=== PATIENT | female | born 2000 | race Caucasian/White ===

== ENCOUNTER 2018-02-09 15:35 | Emergency (ER) | payer OTHER ==
[~2018-02-09] VITALS: Ht 162.6 cm; Wt 54.4 kg
[2018-02-09 16:03] LABS: ABSOLUTE NEUTROPHILS 6.9 thou/uL (1.4-8.2); BASOPHILS 0.5 % (0.0-2.0); EOSINOPHILS 0.9 % (0.0-3.0); HEMATOCRIT 35.8 % (37.0-47.0); HEMOGLOBIN 12.5 gm/dL (12.0-15.0); LYMPHOCYTES 21.4 % (24.0-44.0); MCH 31.5 pg (26.0-34.0); MONOCYTES 4.9 % (1.0-8.0); PLATELET COUNT 170 thou/uL (150-400); POLYS 72.3 % (36.0-66.0); RBC 3.98 mil/uL (4.20-5.00); RDW 12.4 % (10.5-14.5); WBC 9.5 thou/uL (4.0-11.0)
[2018-02-09 16:11] LABS: CALCIUM 9.5 mg/dL (8.5-10.1); CREATININE 0.7 mg/dL (0.6-1.0); POTASSIUM 3.6 mmol/L (3.5-5.1)
[2018-02-09 16:16] LABS: ALBUMIN 3.9 g/dL (3.4-5.0); TOTAL BILIRUBIN 0.2 mg/dL (<0.1-1.0); TOTAL PROTEIN 7.9 g/dL (6.4-8.2)
[2018-02-09 18:10] LABS: URINE BILIRUBIN NEGATIVE (Negative); URINE BLOOD NEGATIVE (Negative); URINE CLARITY CLEAR; URINE COLOR YELLOW; URINE GLUCOSE-RANDOM* NEGATIVE (Negative); URINE KETONES NEGATIVE (Negative); URINE LEUKOCYTES-REFLEX NEGATIVE (Negative); URINE NITRITE-REFLEX NEGATIVE (Negative); URINE PROTEIN (DIPSTICK) NEGATIVE (Negative); URINE SPECIFIC GRAVITY 1.015 (1.005-1.035); URINE UROBILINOGEN 0.2 E.U./dl (0.2-1.0)
[2018-02-09] MEDS ORDERED: FLAGYL500 MG PO (18:19)
[2018-02-09 18:21] VITALS: BP 101/74
[2018-02-10 16:13] LABS: NEISSERIA GONORRHEA-PCR Negative (Negative)
== END 2018-02-09 18:30 | disposition home or self-care (01) ==
LOC: ER 15:35
PROVIDERS: Physician Assistant
DX: O20.0 Threatened abortion (principal); O23.591 Infection of other part of genital tract in pregnancy, first trimester; Z3A.12 12 weeks gestation of pregnancy